=== PATIENT | male | born 1980 | race African-American/Black ===

== ENCOUNTER 2018-08-10 06:15 | Emergency (ER) | payer MEDICAID ==
[~2018-08-10] VITALS: Ht 175.3 cm; Wt 78.0 kg
[2018-08-10 06:32] VITALS: BP 114/63; Ht 175.3 cm; Wt 78.0 kg
== END 2018-08-10 08:13 | disposition home or self-care (01) ==
LOC: ED 06:15
DX: H10.89 Other conjunctivitis (principal)